=== PATIENT | female | born 1930 | race Caucasian/White ===

== ENCOUNTER 2017-11-10 19:45 | Emergency (ER) | payer MEDICARE ==
[~2017-11-10] VITALS: Ht 170.2 cm; Wt 71.7 kg
[~2017-11-10 19:45] MED LIST: ASPIR-LOW81 MG PO; ASPIRIN EC325 MG PO; CEPHALEXIN500 MG PO; CIPRO500 MG PT; CIPRODEX OTIC7.5 ML; CIPROFLOXACIN500 MG PO; FLAGYL500 MG PO; GLUCOPHAGE XR500 MG PO; LANOXIN125 MCG PO; METFORMIN HCL500 MG PO; METOPROLOL TART25 MG PO; NORCO 5-325 TA1 EACH PO
--- NOTE | 2017-11-12 13:21 | EKG ---
[facility] [address] [facility] [place] [address] Signed Normal sinus rhythm RSR' or QR pattern in V1 suggests right ventricular conduction delay Nonspecific ST abnormality Abnormal ECG No previous ECGs available Confirmed by FOUZIA RODRIGUEZ MD ([id number] on 11/12/2017 1:21:29 PM Electronically Signed By: FOUZIA RODRIGUEZ MD 11/12/17 1321 PATIENT NAME: KHOI MAXWELL MIS Electrocardiogram DATE OF : [birth year] PHYSICIAN: FOUZIA RODRIGUEZ MD REPORT #: [id number] REPORT IS CONFIDENTIAL AND NOT TO BE RELEASED WITHOUT AUTHORIZATION
== END 2017-11-10 22:32 | disposition home or self-care (01) ==
LOC: ED 19:45
PROC: 0T9B70Z Drainage of Bladder with Drainage Device, Via Natural or Artificial Opening (ICD-10-PCS; principal; 2017-11-10)
DX: M62.81 Muscle weakness (generalized) (principal); R29.810 Facial weakness; H53.8 Other visual disturbances; E86.0 Dehydration; I48.91 Unspecified atrial fibrillation; E11.9 Type 2 diabetes mellitus without complications; K21.9 Gastro-esophageal reflux disease without esophagitis; Z87.891 Personal history of nicotine dependence; Z79.899 Other long term (current) drug therapy; Z79.82 Long term (current) use of aspirin; Z79.84 Long term (current) use of oral hypoglycemic drugs
CPT/HCPCS: 51701; 51798; 70450; 80053; 81001; 83605; 84484; 85025; 87077; 87088; 87186; 93005; 93010; 96360; 99284; J7040